=== PATIENT | female | born 1970 | race Caucasian/White ===

== ENCOUNTER → 2021-11-05 10:10 | Outpatient (CLI) | payer OTHER, SELFPAY ==
--- NOTE | ~2021-11-05 | US_ITS ---
EXAMINATION: US thyroid DATE: 11/05/2021 10:29 INDICATION: Enlarged thyroid. TECHNIQUE: Multiple ultrasound images of the thyroid were obtained. COMPARISON: None. FINDINGS: The right thyroid lobe measures 3.7 x 0.8 x 1.1 cm. The left thyroid lobe measures 3.4 x 0.8 x 0.9 c m. There is normal echotexture and echogenicity throughout the thyroid gland. No discrete nodules id entified. Normal vascular flow is present. IMPRESSION: 1. Normal thyroid. Reviewed, dictated and finalized at location A. IMPRESSION: 1. Normal thyroid.
== END ==
PROVIDERS: PCP Physician Assistant; Visit Provider Physician Assistant
DX: E01.0 Iodine-deficiency related diffuse (endemic) goiter (principal)
CPT/HCPCS: 76536

== ENCOUNTER 2023-04-24 09:15 | Emergency (ER) | payer OTHER, SELFPAY ==
--- NOTE | 2023-04-24 09:21 | ED.SKABFB ---
HPI - Skin/Abscess/Foreign Bdy General Chief complaint: Skin/Abscess/Foreign Body Stated complaint: poison jade Source: patient and RN notes reviewed History of Present Illness HPI narrative: 53 yo F presents to urgent care with complaints of an itchy rash on her face. Pt states she came into contact with poison jade on Friday when she was weeding her garden bed. Pt states the rash started on Friday. Denies any vision change, N/V/D, chest pain, SOB, or fevers. Pt has been using an OTC cream on her rash. Related Data Allergies Allergy/AdvReac Type Severity Reaction Status Date / Time clarithromycin Allergy Unknown Rash Verified 04/24/23 09:32 meloxicam Allergy lethargic Verified 04/24/23 09:32 Review of Systems Review of Systems: CONSTITUTIONAL: Denies fever, chills, or sweats. EYES: Denies visual changes, redness, or discharge. ENT: Denies otalgia and sore throat CARDIOVASCULAR: Denies chest pain, palpitations, or edema. RESPIRATORY: Denies cough or dyspnea. GASTROINTESTINAL: Denies abdominal pain, nausea, vomiting, or diarrhea. GENITOURINARY: Denies dysuria or hematuria. SKIN: Rash MUSCULOSKELETAL: Denies back pain, joint pain, or myalgia. NEUROLOGIC: Denies headache, numbness, or weakness. Pertinent positives per HPI. [facility] Past Medical History Medical History (Updated 04/24/23 @ 09:40 by Lucille Fishman APRN) Adverse effect of [id number]-ccmyyo inhibitors, initial encounter Anxiety Borderline hypothyroidism Essential hypertension Hyperlipidemia, unspecified Vitamin D deficiency Family History Family History (Updated 11/08/22 @ 10:30 by Grace Carreno [facility]) Mother Asthma Grandparent Family history of coronary artery disease Father Malignant neoplasm of prostate Social History Social History (Updated 11/08/22 @ 10:35 by Grace Carreno [facility]) Smoking status: Never smoker Second hand tobacco smoke exposure: No Alcohol intake: never Substance use: never Substance use type: does not use Lack of Transportation: No Lack of Food: Never True Current Housing: I Have Housing Concerned About Future Housing: No Difficulty Paying Gas/Electric Bills: No Difficulty Paying for Meds: No Currently Unemployed: No Education: Bachelor's Degree Difficulty w/ Childcare or Family Care: No Comments At the time of my signature, I reviewed and agree with the nursing past medical, surgical, social, and family history. There is no relevant family history pertinent to the patient complaint. Exam Narrative: GENERAL: This is a well-nourished, well-developed patient, in no apparent distress. HEAD: normocephalic, atraumatic. EYES: Sclera clear/white. Vision is grossly intact. EARS: External ears normal, auditory canals clear and without drainage, TMs normal without perforation. Hearing grossly intact. NOSE: External nose normal with no obvious nasal discharge, nares without redness, no rhinorrhea. THROAT: Mucous membranes moist, posterior pharynx clear. NECK: Neck supple, non-tender without lymphadenopathy, masses or thyromegaly. CARDIOVASCULAR: Regular rate RESPIRATORY: No respiratory distress SKIN: erythremic, dry, partially raised patches and papules to face; mildly erythremic, linear rash to right FA. NEURO: awake, alert, and oriented to person, place and time. There were no obvious focal neurologic abnormalities. EXTREMITIES: No clubbing, cyanosis, or edema. No joint tenderness, effusion, or edema noted. BACK: Nontender without deformity or crepitus. No flank tenderness. Course Course Level of Care: Express Care Visit Vital Signs Vital signs: Vital Signs Temperature 97.7 F 04/24/23 09:22 Pulse Rate 82 04/24/23 09:22 Respiratory Rate 20 04/24/23 09:22 Blood Pressure 146/93 H 04/24/23 09:22 Pulse Oximetry 97 04/24/23 09:22 Oxygen Delivery Room Air 04/24/23 09:22 Temperature 97.7 F 04/24/23 09:22 Pulse R
[2023-04-24 09:22] VITALS: BP 146/93; PULSE 82; RESP 20; TEMP 36.5; O2SAT 97
== END 2023-04-24 09:44 | disposition home or self-care (01) ==
PROVIDERS: Emergency Provider Nurse Practitioner Family; PCP Family Medicine
DX: L25.9 Unspecified contact dermatitis, unspecified cause (principal); I10 Essential (primary) hypertension; E78.5 Hyperlipidemia, unspecified; E55.9 Vitamin D deficiency, unspecified; F41.9 Anxiety disorder, unspecified
CPT/HCPCS: 99213; G0463